=== PATIENT | female | born 1960 | race Two or more races ===

== ENCOUNTER 2024-12-21 12:48 | Emergency (ER) | payer MEDICAID, SELFPAY ==
[2024-12-21 13:04] VITALS: BP 135/77; PULSE 68; RESP 18; TEMP 36.7; O2SAT 95; BMI 26.1
--- NOTE | 2024-12-21 13:17 | XR_ITS ---
Examination: CT cervical spine without contrast 2-D sagittal reconstructions 2-D coronal reconstructions 3-D reconstructions. Exam date and time:December 21, 2024 at 1352 hrs. Indications: Sudden onset neck pain today CTDI:vol (mGy) 8.08 DLP: (mGycm) 167 Technique: Multiple 2 mm axial sections of the cervical spine have been obtained. The coronal and sagittal reconstructions have been obtained. 3-D reconstructions have been obtained. Low dose protocols were performed. One or more of the following dose reduction techniques were used; automated exposure control, adjustment of the mA and/or KV according to patient size, use of iterative reconstruction technique. Findings: Axial sections demonstrate intact base of the skull. C1 exhibit satisfactory relationship to the odontoid. No acute cervical vertebral body fracture seen. Alignment posterior spinous processes satisfactory. Mild disc narrowing C5-C6 with facet arthropathy Impression: No acute cervical fracture. Mild degenerative disc disease C5-C6 Consider elective MRI cervical spine without contrast follow-up
--- NOTE | 2024-12-21 13:17 | XR_ITS ---
Shoulder bilateral, 6 views Technique: Shoulder AP internal rotation, AP external rotation, Y view each shoulder total 6 views Exam date and time :December 21, 2024 1355 hrs. Indications: Bilateral shoulder pain today. Findings: Moderate osteopenia. No shoulder or fracture dislocation involving either shoulder No cortical bone destruction No opaque foreign bodies Impression: No bilateral shoulder fracture or dislocation
--- NOTE | 2024-12-21 13:17 | EKG_ITS ---
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
--- NOTE | 2024-12-21 13:17 | XR_ITS ---
Examination: PA lateral chest 2 views Technique: Upright PA lateral chest 2 views Exam date and time: December 21, 2024 1333 hrs. Comparison November 20, 2011 Indications: Chest pain dizziness congestion today. Findings: Normal heart size No pneumonia or pulmonary edema. Moderate osteopenia Impression: No pneumonia or pulmonary edema
--- NOTE | 2024-12-21 13:17 | XR_ITS ---
Examination: CT brain head without contrast. 2-D sagittal coronal reconstructions Date and time of exam:December 21, 2024 1352 hrs. Indications: Onset generalized head pain today CTDI: vol (mGy):46.8 DLP: (mGycm):892 Technique: Multiple CT axial sections of the brain have been obtained, 5 mm slice thickness. Contrast has not been administered. 2-D sagittal, coronal reconstructions have been obtained Low dose protocols were performed. One or more of the following dose reduction techniques were used; automated exposure control, adjustment of the mA and/or KV according to patient size, use of iterative reconstruction technique. Findings: No significant ventricular enlargement. Intra-axial or extra-axial hemorrhage density is not seen. No mass effect or midline shift Basal cisterns are not remarkable. Fourth ventricle is midline. Cranial vault intact. Impression: Negative for acute hemorrhage, mass effect or midline shift
--- NOTE | 2024-12-21 13:18 | PD.EDRME ---
Rapid Medical Screening Exam RME Arrival date/time: 12/21/24 12:48 64-year-old female presents Emergency Department with complaints of bilateral shoulder pain, headache and dizziness Chief Complaint: General Adult/Misc Complain Time Seen by Provider: 12/21/24 18:08 Vital signs: Vital Signs Temperature 98.1 F 12/21/24 13:04 Pulse Rate 68 12/21/24 13:04 Respiratory Rate 18 12/21/24 13:04 Blood Pressure 135/77 H 12/21/24 13:04 Pulse Oximetry (%) 95 12/21/24 13:04 Oxygen Delivery Method Room Air 12/21/24 13:04
[2024-12-21 14:12] LABS: Basophils % (Auto) 0 % (0-2.5); Eosinophils % (Auto) 0 % (0-10); Hematocrit 43.9 % (36.0-46.0); Hemoglobin 14.5 g/dL (12.0-16.0); Immature Granulocytes % (Auto) 0 % (0-0); Immature Granulocytes Auto 0.02 Thou/mm3 (0.00-0.00); Lymphocytes # (Auto) 2.1 Thou/mm3 (1.0-4.8); Lymphocytes % (Auto) 31 % (10-50); Mean Corpuscular Hemoglobin 30.9 pg (25.0-35.0); Mean Corpuscular Volume 94 fL (80-100); Monocytes # (Auto) 0.7 Thou/mm3 (0.0-0.8); Monocytes % (Auto) 10 % (0-12); Neutrophils # (Auto) 3.9 Thou/mm3 (1.8-7.7); Neutrophils % (Auto) 58 % (37-80); Nucleated Red Blood Cell % 0 /100 WBC (0); Platelet Count 286 Thou/mm3 (140-440); Red Blood Count 4.69 Miln/mm3 (4.00-5.20); White Blood Count 6.7 Thou/mm3 (3.6-11.0)
[2024-12-21 14:29] LABS: Partial Thromboplastin Time 26.1 Seconds (22.0-36.0); Prothrombin Time 10.8 Seconds (9.0-12.2)
[2024-12-21 14:33] LABS: B-Type Natriuretic Peptide 56 pg/mL (0-100)
[2024-12-21 14:37] LABS: Alanine Aminotransferase 14 U/L (10-49); Albumin, Serum 4.6 gm/dL (3.4-4.8); Albumin/Globulin Ratio 1.5 (1.2-2.2); Alkaline Phosphatase 98 U/L (46-116); Anion Gap 7 (7-16); Aspartate Amino Transferase 18 U/L (0-34); BUN/Creatinine Ratio 12 Ratio (12-20); Bilirubin,Total 0.5 mg/dL (0.3-1.2); Blood Urea Nitrogen 11 mg/dL (9-23); Calcium 9.5 mg/dL (8.3-10.6); Calcium (Corrected) 9.5 mg/dL (8.5-10.1); Carbon Dioxide 27.7 mMol/L (20.0-31.0); Chloride 106 mMol/L (98-107); Creatinine (Component) 0.9 mg/dL (0.6-1.3); Estimated Creatinine Clearance 65.6 mL/min (>60); Glucose 102 mg/dL (74-106); Magnesium 1.9 mg/dL (1.6-2.6); Osmolality,Calculated 280 (275-295); Potassium 3.6 mMol/L (3.4-5.1); Sodium 141 mMol/L (136-145); Total Protein 7.6 gm/dL (5.7-8.2); Troponin I < 0.002 ng/mL (0.0-0.045); eGFR > 60 See Note
--- NOTE | 2024-12-21 18:32 | EDNOTE_ITS ---
ED Neck Injury Pain RME/HPI General Chief Complaint: General Adult/Misc Complain Stated Complaint: GENERALIZED PAIN,VOMITING, CONFUSED SINCE LAST NOC Time Seen by Provider: 12/21/24 18:08 Arrival date/time: 12/21/24 12:48 RME / HPI RME / HPI Narrative: 12/21/24 12:48 64-year-old female presents Emergency Department with complaints of bilateral shoulder pain, headache and dizziness This section includes all my notes and documentations, including HPI, PE, and ED course. Alphonso Petit MD HPI: 64 y/o female presents to ED c/o headache, nausea, and increased neck pain, numbness and tingling that radiates down to the right shoulder x 2 days. Patient has been experiencing symptoms over a span of several months, but worsened last night to the point that she could not sleep. No other complaints. ROS: All negative except as documented in HPI. Physical Exam: General: Alert and oriented. No acute distress when remaining still. Eyes: Conjunctivae and lids clear. ENT: No nasal congestion. Neck: Supple. No spinal tenderness. Lungs: No respiratory distress. Skin: Warm and dry. Neuro: Alert and oriented X 3. No peripheral motor deficits. I reviewed all diagnostic test results. My interpretation of the EKG is sinus rhythm with no acute ST?T changes. My interpretation of the chest x-ray is NAD. My interpretation of the shoulder x-ray is moderate osteopenia, no bilateral shoulder fracture or dislocation. My review of the head CT report is negative for acute hemorrhage, mass effect or midline shift My review of the cervical spine CT report is No acute cervical fracture. Mild degenerative disc disease C5-C6. Consider elective MRI cervical spine without contrast follow-up. Blood tests unremarkable. At this point, diagnoses include cervical radiculopathy neck pain. Treatment here included Tylenol w/ Codeine Phosphate, Zofran, Prednisone. Significant improvement noted. Recommend outpatient treatment. Based on my best medical judgment, made decision no further evaluation or treatment indicated at this time. Patient understands and agrees to the discharge instructions customized and printed, see below. Discharge Instructions from Dr. Petit: --After evaluation, your neck pain (and headache and right shoulder pain) is due to pinched nerve coming out of the neck. Most likely from arthritis. Called Radiculopathy or Spinal Stenosis). --This condition is difficult because normal pain medications don?t work very well on nerve pain. --Wear soft neck collar, for rest needed to heal, for 4 days then as needed. --Use Ibuprofen and Cyclobenzaprine and Tylenol with codeine and lidocaine patches as needed.? Don't expect the pain to go away completely, hoping to take the edge off.?? And prednisone as prescribed, will help decrease inflammation. --Apply ice or heat if helpful. --See a private doctor (outside the ER) on for further care. Ask to help you get more care not available here in the ER.? Such as MRI imaging, physical therapy, and referrals to see specialists.? Some choose to have surgery for this condition. But you need to have MRI imaging to confirm the diagnosis and assess the severity to get the best treatments. Ask to review all test results and official radiology reports, to make sure you receive all necessary follow-ups and monitoring. --Seek immediate medical care with paralysis in upper extremities or with any concerns.?? Alphonso Petit MD Related Data Previous Rx's ?Medication ?Instructions ?Recorded ibuprofen 800 mg tablet 800 mg PO TID PRN pain #30 t abs 05/13/19 acetaminophen 300 mg-codeine 30 mg 2 tab PO Q8H PRN pa in #20 tabs 12/21/24 tablet cyclobenzaprine 5 mg tablet 5 mg PO TID PRN muscle spa sm #15 12/21/24 tabs lidocaine 5 % topical patch 1 patch topical QDAY PRN p ain #30 12/21/24 (Lidoderm) ea prednisone 50 mg tablet 50 mg PO QDAY 4 days #4 tabs 12/21/24 Allergies Allergy/AdvReac Type Severity Reaction Status Date / Time codeine Allergy Intermediate Rash Verified 12/21/24 12:55 Review of Systems Review of Systems Systems Reviewed: All systems reviewed, normal except as documented Narrative Review of Systems: Refer to HPI above. Past Medical History Social History SMOKING STATUS: Current every day smoker ED Exam Narrative Physical exam: Refer to HPI above. Course Quality Measures none Orders Category Date Time Status EKG (ED ONLY) *Do not use* NOW Care 12/21/24 13:[address] cervical spine wo con Stat Exams 12/21/24 13:[address] head/brain wo con Stat Exams 12/21/24 13:17 Completed EKG (ED Only) Stat Exams 12/21/24 13:17 Draft XR chest 2V Stat Exams 12/21/24 13:17 Completed XR shoulder BI min 2V Stat Exams 12/21/24 13:17 Completed B-Type Natriuretic Peptide Stat Lab 12/21/24 14:06 Completed CBC Stat Lab 12/21/24 14:06 Completed Comprehensive Metabolic Panel Stat Lab 12/21/24 14:06 Completed Magnesium Stat Lab 12/21/24 14:06 Completed Partial Thromboplastin Time Stat Lab 12/21/24 14:06 Completed Prothrombin Time with INR Stat Lab 12/21/24 14:06 Completed Troponin I Stat Lab 12/21/24 14:06 Completed Urinalysis Stat Lab 12/21/24 13:17 Ordered ACETAMINOPHEN w/COD 300-30 [Tylenol w/Cod #3] Med 12/21/24 18:30 Discontinued 2 tab PO X1 ONE Ondansetron Odt [Zofran Odt] Med 12/21/24 18:30 Discontinued 4 mg PO X1 ONE predniSONE Med 12/21/24 18:30 Discontinued 60 mg PO X1 ONE Vital Signs Vital signs: Vital Signs Temperature 98.1 F 12/21/24 13:04 Pulse Rate 68 12/21/24 13:04 Respiratory Rate 18 12/21/24 13:04 Blood Pressure 135/77 H 12/21/24 13:04 Pulse Oximetry (%) 95 12/21/24 13:04 Oxygen Delivery Method Room Air 12/21/24 13:04 Neck Pain MDM Narrative MDM Narrative:: Scribe Attestation: Emily Sena am scribing for and in the presence of Dr. Petit. Provider Notation: Although this document has been carefully reviewed, there may still be some phonetic and other typographical errors. These errors are purely grammatical due to imperfections in the software program and should not be construed in any way to compromise the substance of the patient's medical care during this visit. 64 y/o female presents to ED c/o headache, nausea, and increased neck pain, numbness and tingling that radiates down to the right shoulder x 2 days. Patient has been experiencing symptoms over a span of several months, but worsened last night to the point that she could not sleep. Patient data External records reviewed:: [facility] previous records (Reviewed prior ED records from 01/27/23. Patient was seen for Chronic back pain.) Clinical information provided by:: patient Social determinants that could affect healthcare access:: none Patient has the following chronic illnesses:: None reported. How is presenting disease/condition affected by chronic disease/condition?: no chronic disease (None reported.) Evaluation data The following diagnostics were reviewed and interpreted by me:: lab results, radiology exam(s) and EKG tracing(s) Lab and/or radiology exams considered but not ordered:: None. Interpretation Summary: Cervical radiculopathy Medications / Prescriptions Medications or Prescriptions considered but not ordered:: None. Medication administrations:: Medication Administration History Discontinued Medications Acetaminophen/Codeine Phosphate (Acetaminophen W/Cod 300-30 Tablet) 2 tab PO X1 ONE Stop: 12/21/24 18:31 Ondansetron HCl (Ondansetron Odt 4 Mg Tabrap) 4 mg PO X1 ONE; Protocol Stop: 12/21/24 18:31 Prednisone (Prednisone 20 Mg Tablet) 60 mg PO X1 ONE Stop: 12/21/24 18:31 Tylenol w/ Codeine Phosphate, Zofran, Prednisone. Consultations Consultation(s) initiated? (list below): No Diagnosis Neck Differential Diagnosis: disc disorder of cervical region, closed subluxation of cervical spine, fracture of cervical spine without lesion of spinal cord, cervical radiculopathy, torticollis, cervical spondylosis and strain of neck muscle Most likely diagnosis given after review of the tests above:: Neck pain due to cervical radiculopathy. Admission Indicated Admission indicated?: not indicated Explain why admission is indicated or not indicated:: There is no indication for admission. Admission Request Was there a request for admission?: No Disposition Plan Disposition Plan: Discharge Discharge Attestation Discharge Attestation: The patient and all family members were given an opportunity to ask questions and understood the discharge instructions. Discharge instructions specifically effects, indications for sooner follow up or return to the emergency department, and the expected course of current diagnosis. Patient condition: Stable Discharge Plan Plan Patient Disposition: HOME (Self Care) Prescriptions/Referrals Prescriptions/Med Rec: New acetaminophen-codeine 300-30 mg tablet 2 tab PO Q8H MDD 6 PRN (Reason: pain) Qty: 20 0RF prednisone 50 mg tablet 50 mg PO QDAY 4 Days Qty: 4 0RF lidocaine [Lidoderm] 5 % adhesive patch,medicated 1 patch topical QDAY PRN (Reason: pain) Qty: 30 0RF Rx Instructions: leave on most painful area for up to 12 hrs cyclobenzaprine 5 mg tablet 5 mg PO TID PRN (Reason: muscle spasm) Qty: 15 0RF No Action ibuprofen 800 mg tablet 800 mg PO TID PRN (Reason: pain) Qty: 30 0RF Referrals: Mellissa Alexander FNP ([facility]) [Primary Care Provider] - In 1 week Problem List Clinical Impression: Neck pain Patient/Caregiver Discharge Instructions Discharge Activity: activity as tolerated Education Materials: ED Radiculopathy, Cervical Additional Instructions: Discharge Instructions from Dr. Petit: --After evaluation, your neck pain (and headache and right shoulder pain) is due to pinched nerve coming out of the neck. Most likely from arthritis. Called Radiculopathy or Spinal Stenosis). --This condition is difficult because normal pain medications don?t work very well on nerve pain. --Wear soft neck collar, for rest needed to heal, for 4 days then as needed. --Use Ibuprofen and Cyclobenzaprine and Tylenol with codeine and lidocaine patches as needed.? Don't expect the pain to go away completely, hoping to take the edge off.?? And prednisone as prescribed, will help decrease inflammation. --Apply ice or heat if helpful. --See a private doctor (outside the ER) on for further care. Ask to help you get more care not available here in the ER.? Such as MRI imaging, physical therapy, and referrals to see specialists.? Some choose to have surgery for this condition. But you need to have MRI imaging to confirm the diagnosis and assess the sev erity to get the best treatments. Ask to review all test results and official radiology reports, to make sure you receive all necessary follow-ups and monitoring. --Seek immediate medical care with paralysis in upper extremities or with any concerns.?? Instrucciones de elena del Dr. Petit: --Despu?s de la evaluaci?n, hilton dolor de caren (y dolor de najma y de hombro derecho) se debe a un nervio pinzado que sale del caren. Probablemente se deba a artritis. (Radiculopat?a o Estenosis Watt). --Esta afecci?n es complicada porque los analg?sicos comunes no son muy eficaces para el dolor nervioso. --Use un collar?n cervical suave ondina 4 d?as para el descanso necesario para la recuperaci?n y luego seg?n sea necesario. --Use ibuprofeno, ciclobenzaprina y Tylenol con parches de code?na y lidoca?na seg?n sea necesario. No espere que el dolor desaparezca por completo; espere que la sensaci?n sea lupe. Y la prednisona, seg?n lo recetado, ayudar? a disminuir la inflamaci?n. --Aplique hielo o calor si le resulta ?til. --Consulte con un m?dico privado (fuera de urgencias) el para recibir atenci?n adicional. Solicite ayuda para obtener m?s atenci?n que no est? disponible en urgencias, lalito resonancias magn?jenn, fisioterapia y derivaciones a especialistas. Algunas personas optan por la cirug?a para esta afecci?n. Sin embargo, es necesario realizar louis resonancia magn?william para confirmar el diagn?stico y evaluar la gravedad para obtener el mejor tratamiento. Solicite revisar todos los resultados de las pruebas y los informes radiol?gicos oficiales para asegurarse de recibir todos los seguimientos y la monitorizaci?n necesarios. --Busque atenci?n m?dica inmediata si presenta par?lisis en las extremidades superiores o si tiene alguna inquietud. Print Language: Maltese Stand Alone Forms: Lydia Award Info., Patient Portal Info Letter
[2024-12-21] MEDS: ACETAMINOPHEN w/COD 300-30 TABLET 2 TAB PO (18:51)
[2024-12-21] MEDS: ONDANSETRON ODT 4 MG TABRAP PO (18:51)
[2024-12-21] MEDS: predniSONE 20 MG TABLET 60 MG PO (18:51)
== END 2024-12-21 18:59 | disposition home or self-care (01) ==
PROVIDERS: Nurse Practitioner Primary Care; Emergency Provider Emergency Medicine; PCP Nurse Practitioner Primary Care
DX: M54.2 Cervicalgia (principal); M25.511 Pain in right shoulder; M25.512 Pain in left shoulder; R51.9 Headache, unspecified; R42 Dizziness and giddiness
CPT/HCPCS: 36415; 70450; 71046; 72125; 73030; 80053; 81001; 83735; 83880; 84484; 85025; 85610; 85730; 93005; 99284; J7512; Q0162; A9270